=== PATIENT | male | born 1960 | race Caucasian/White ===

== ENCOUNTER 2017-06-23 20:51 | Inpatient (IN) ==
[2017-06-23 21:22] LABS: Basophils # 0.1 10*3/uL (0.0-0.2); Basophils % 0.6 % (0.0-0.8); Eosinophils # 0.5 10*3/uL (0.0-0.87); Eosinophils % 2.9 % (0.00-10.9); Hematocrit 41.8 VOL% (42.0-52.0); Hemoglobin 14.1 GM/DL (14.0-18.0); Immature Granulocytes % 0.5 %; Immature Granulocytes Absolute 0.09 #; Lymphocytes # 4.4 10*3/uL (1.4-4.0); Mean Corpuscular HGB Conc 33.7 GM/DL (32-36); Mean Corpuscular Hemoglobin 29 PG (27-34); Mean Corpuscular Volume 86.7 FL (87-102); Mean Platelet Volume 10.1 FL (9.6-12.0); Monocytes # 1.3 10*3/uL (0.11-0.8); Monocytes % 7.8 % (1.7-12.7); Neutrophils # 10.4 10*3/uL (1.4-7.4); Neutrophils % 62.2 % (38.7-73.9); Platelet Count 313 T/CUMM (130-400); Red Blood Count 4.82 MC/CUMM (3.8-5.5); White Blood Count 16.7 T/CUMM (4-12)
[2017-06-23 21:37] LABS: PT Patient Result 10.9 SECS; Partial Thromboplastin Time 22.7 SECS (0-40)
[2017-06-23] MEDS: SODIUM CHLORIDE 0.9% 1,000 ML IV SCH ×3 (21:43→22:41)
[2017-06-23 21:47] LABS: Alanine Aminotransferase 140 U/L (16-61); Albumin 3.2 G/DL (3.4-5.0); Alkaline Phosphatase 91 U/L (45-117); Amylase 32 U/L (25-115); Aspartate Amino Transferase 150 U/L (0-37); Bilirubin,Total < 0.39 MG/DL (0.2-1.0); Blood Urea Nitrogen 21 MG/DL (7-18); Calcium 8.1 MG/DL (8.5-10.1); Glucose 173 MG/DL (74-106); Osmolality,Calculated 283.5 MOS/KG (273-304); Potassium 4.2 MMOL/L (3.5-5.1); Sodium 139 MMOL/L (136-145); Total Protein 5.6 G/DL (6.4-8.3)
[2017-06-23 21:50] LABS: Lactic Acid 4.6 MMOL/L (0.4-2.0)
[2017-06-23 22:01] LABS: Apearance,Urine CLEAR (Clear); Bilirubin,Urine Negative (Negative); Blood, Urine Moderate mg/dL (Negative); Glucose,Urine (UA) 50 mg/dL (Negative); Ketones,Urine Negative (Negative); Mucus,Urine Occasional /LPF (Occasional); Nitrite,Urine Negative (Negative); Protein,Urine 100 MG/DL; RBC,Urine 17 /HPF (0-4); Urine Color Yellow (Yellow); Urine Specific Gravity 1.038 (1.001-1.035); Urine Urobilinogen < 2.0 EU/DL (0.2-1.0)
[2017-06-23] MEDS ORDERED: MICROFIBRILLAR COLLAGEN POWDER 1 GM CAN TOP ONE ×2 (22:02→22:17)
[2017-06-23 22:08] LABS: Barbiturates Screen,Urine Negative (Negative); Benzodiazepines Screen,Urine Positive (Negative); Cannabinoid Screen,Urine Positive (Negative); Opiate Screen,Urine Negative (Negative); Phencyclidine Screen,Urine Negative (Negative)
[2017-06-23] MEDS ORDERED: ceFAZolin 1,000 MG VIAL ONE (22:12)
[2017-06-23] MEDS ORDERED: ETOMIDATE 20 MG/10 ML VIAL IV ONE (22:17)
[2017-06-23] MEDS ORDERED: PROPOFOL 1,000 MG/100 ML BOTTLE IV ONE (22:25)
[2017-06-23] MEDS: PROPOFOL 1,000 MG/100 ML BOTTLE IV SCH (23:15)
[2017-06-23] MEDS ORDERED: fentaNYL 100 MCG/2 ML VIAL ONE (23:28)
[2017-06-23] MEDS ORDERED: ROCURONIUM 100 MG/10 ML VIAL IV ONE (23:28)
[2017-06-23] MEDS ORDERED: MIDAZOLAM 2 MG/2 ML VIAL ONE (23:28)
[2017-06-23] MEDS ORDERED: SODIUM CHLORIDE 0.9% 4,000 ML IV ONE (23:28)
[2017-06-23] MEDS ORDERED: SEVOFLURANE 1 UNIT/15 MINUTE INH ONE (23:28)
[2017-06-23 23:41] LABS: Hematocrit 26.8 VOL% (42.0-52.0); Hemoglobin 9.1 GM/DL (14.0-18.0)
[2017-06-23 23:46] LABS: ABG Base Excess -6.5 MMOL/L (-2.5-2.5); ABG Oxygen Saturation 99.5 % (95-100); ABG PCO2 37.9 MM HG (35-48); ABG PH 7.311 (7.35-7.45); ABG TCO2 17.9 MMOL/L (23-27)
[2017-06-23] MEDS: DEXTROSE 5% LACTATED RINGERS 1,000 ML IV SCH (23:49)
[2017-06-23] MEDS ORDERED: SODIUM CHLORIDE 0.9% 250 ML IV PRN (23:59)
[2017-06-24] MEDS ORDERED: SODIUM CHLORIDE 0.9% 250 ML IV PRN ×2 (00:02→05:29)
[2017-06-24 00:28] LABS: Hematocrit 33.2 VOL% (42.0-52.0); Hemoglobin 11.4 GM/DL (14.0-18.0)
[2017-06-24 00:38] LABS: INR 1.3; PT Patient Result 13.1 SECS
[2017-06-24 00:55] LABS: Calcium 6.5 MG/DL (8.5-10.1); Magnesium 1.5 MG/DL (1.8-2.4); Osmolality,Calculated 291.8 MOS/KG (273-304); Potassium 3.9 MMOL/L (3.5-5.1)
[2017-06-24] MEDS ORDERED: MAGNESIUM SULF RIDER 1 GM in PREMIX 1 EACH IV ONE (01:01)
[2017-06-24] MEDS ORDERED: CALCIUM GLUCONATE 1,000 MG in SODIUM CHLORIDE 0.9% 100 ML IV ONE (02:00)
[2017-06-24 02:04] LABS: Hematocrit 28.1 VOL% (42.0-52.0); Hemoglobin 9.6 GM/DL (14.0-18.0)
[2017-06-24 04:11] LABS: Basophils % 0.2 % (0.0-0.8); Eosinophils # 0.1 10*3/uL (0.0-0.87); Eosinophils % 0.4 % (0.00-10.9); Hematocrit 27.9 VOL% (42.0-52.0); Hemoglobin 9.6 GM/DL (14.0-18.0); Immature Granulocytes % 0.3 %; Immature Granulocytes Absolute 0.05 #; Lymphocytes # 1.8 10*3/uL (1.4-4.0); Lymphocytes % 11.1 % (21.2-54.2); Mean Corpuscular HGB Conc 34.4 GM/DL (32-36); Mean Corpuscular Hemoglobin 30 PG (27-34); Mean Corpuscular Volume 86.9 FL (87-102); Mean Platelet Volume 10.1 FL (9.6-12.0); Monocytes % 6.3 % (1.7-12.7); Neutrophils # 13.2 10*3/uL (1.4-7.4); Neutrophils % 81.7 % (38.7-73.9); Platelet Count 206 T/CUMM (130-400); Red Blood Count 3.21 MC/CUMM (3.8-5.5); Red Cell Distribution Width 12.5 % (9.3-17.3); White Blood Count 16.2 T/CUMM (4-12)
[2017-06-24 04:18] LABS: ABG Base Excess -3.3 MMOL/L (-2.5-2.5); ABG HCO3 21.7 MMOL/L (20-26); ABG Oxygen Saturation 99.3 % (95-100); ABG PCO2 33.9 MM HG (35-48); ABG PH 7.399 (7.35-7.45); ABG TCO2 19.1 MMOL/L (23-27)
[2017-06-24 04:38] LABS: Albumin 2.5 G/DL (3.4-5.0); Bilirubin,Total 0.6 MG/DL (0.2-1.0); Calcium 7.3 MG/DL (8.5-10.1); Potassium 3.9 MMOL/L (3.5-5.1); Total Protein 4.3 G/DL (6.4-8.3)
[2017-06-24 04:42] LABS: Band Neutrophils 18 % (0-10); Eosinophils 1 % (0-10); Lymphocytes 12 % (20-55); Segmented Neutrophils 66 % (50-85); Total Cells Counted 100
[2017-06-24 04:43] LABS: Platelet Estimate Normal
[2017-06-24] MEDS: HYDROmorphone 2 MG/1 ML VIAL IV PRN ×4 (05:18→23:30)
[2017-06-24] MEDS: PROPOFOL 1,000 MG/100 ML BOTTLE IV SCH ×2 (07:56→21:29)
[2017-06-24] MEDS: DEXTROSE 5% LACTATED RINGERS 1,000 ML IV SCH ×2 (07:56→16:12)
[2017-06-24 08:43] LABS: Hematocrit 34.4 VOL% (42.0-52.0); Hemoglobin 11.7 GM/DL (14.0-18.0)
[2017-06-24] MEDS ORDERED: DEXTROSE 50% 25 GM/50 ML VIAL IV PRN (09:40)
[2017-06-24] MEDS ORDERED: GLUCAGON 1 MG VIAL IM PRN (09:40)
[2017-06-24] MEDS: PANTOPRAZOLE 40 MG VIAL IV SCH (09:51)
[2017-06-24] MEDS: INSULIN REGULAR 100 UNIT/ML SUBCUT SCH ×2 (12:15→18:32)
[2017-06-24 15:36] LABS: Hematocrit 32.4 VOL% (42.0-52.0); Hemoglobin 11.3 GM/DL (14.0-18.0)
[2017-06-25] MEDS: BACITRACIN OINT 0.9 GM PACK TOP SCH ×2 (01:05→09:27)
[2017-06-25] MEDS: DEXTROSE 5% LACTATED RINGERS 1,000 ML IV SCH ×3 (01:06→16:27)
[2017-06-25] MEDS: INSULIN REGULAR 100 UNIT/ML SUBCUT SCH ×4 (01:07→18:23)
[2017-06-25] MEDS: PROPOFOL 1,000 MG/100 ML BOTTLE IV SCH ×3 (01:07→17:01)
[2017-06-25 04:07] LABS: ABG Base Excess -2.3 MMOL/L (-2.5-2.5); ABG HCO3 21.8 MMOL/L (20-26); ABG Oxygen Saturation 95.7 % (95-100); ABG PCO2 34.9 MM HG (35-48); ABG PH 7.413 (7.35-7.45); ABG TCO2 22.8 MMOL/L (23-27); Pt O2 Delivery Device Ventilator
[2017-06-25 04:16] LABS: Basophils % 0.3 % (0.0-0.8); Eosinophils % 0.1 % (0.00-10.9); Hemoglobin 11.3 GM/DL (14.0-18.0); Immature Granulocytes % 0.4 %; Immature Granulocytes Absolute 0.06 #; Lymphocytes % 6.8 % (21.2-54.2); Mean Corpuscular HGB Conc 34.2 GM/DL (32-36); Mean Corpuscular Hemoglobin 30 PG (27-34); Mean Corpuscular Volume 86.4 FL (87-102); Mean Platelet Volume 9.8 FL (9.6-12.0); Monocytes # 1.4 10*3/uL (0.11-0.8); Monocytes % 9.4 % (1.7-12.7); Neutrophils # 12.7 10*3/uL (1.4-7.4); Platelet Count 145 T/CUMM (130-400); Red Blood Count 3.82 MC/CUMM (3.8-5.5); Red Cell Distribution Width 13.7 % (9.3-17.3); White Blood Count 15.3 T/CUMM (4-12)
[2017-06-25 04:48] LABS: Platelet Estimate Adequate
[2017-06-25 04:52] LABS: Phosphorous 2.7 MG/DL (2.5-4.9); Prealbumin 11.6 MG/DL (20-40)
[2017-06-25 04:56] LABS: Calcium 7.5 MG/DL (8.5-10.1); Magnesium 1.9 MG/DL (1.8-2.4); Osmolality,Calculated 289.8 MOS/KG (273-304); Potassium 4.3 MMOL/L (3.5-5.1)
[2017-06-25] MEDS ORDERED: MICROFIBRILLAR COLLAGEN POWDER 1 GM CAN TOP ONE ×2 (06:30→06:31)
[2017-06-25] MEDS ORDERED: SODIUM CHLORIDE 0.9% 1,000 ML IV ONE (08:59)
[2017-06-25] MEDS ORDERED: PHENYLEPHRINE 50 MG/5 ML VIAL ONE (08:59)
[2017-06-25] MEDS ORDERED: LACTATED RINGERS 1,000 ML IV ONE (08:59)
[2017-06-25] MEDS ORDERED: MIDAZOLAM 2 MG/2 ML VIAL ONE (08:59)
[2017-06-25] MEDS ORDERED: SEVOFLURANE 1 UNIT/15 MINUTE INH ONE (08:59)
[2017-06-25] MEDS ORDERED: VECURONIUM 10 MG VIAL IV ONE (08:59)
[2017-06-25] MEDS: PANTOPRAZOLE 40 MG VIAL IV SCH (09:27)
[2017-06-25] MEDS: HYDROmorphone 2 MG/1 ML VIAL IV PRN ×4 (10:38→21:29)
[2017-06-26] MEDS: INSULIN REGULAR 100 UNIT/ML SUBCUT SCH ×4 (01:10→18:07)
[2017-06-26] MEDS: PROPOFOL 1,000 MG/100 ML BOTTLE IV SCH ×4 (01:11→22:04)
[2017-06-26] MEDS: DEXTROSE 5% LACTATED RINGERS 1,000 ML IV SCH ×3 (01:12→15:31)
[2017-06-26 04:18] LABS: ABG Base Excess -0.1 MMOL/L (-2.5-2.5); ABG HCO3 24.3 MMOL/L (20-26); ABG Oxygen Saturation 97.6 % (95-100); ABG PCO2 43.6 MM HG (35-48); ABG PH 7.371 (7.35-7.45); ABG PO2 93.7 MM HG (80-95); ABG TCO2 22.7 MMOL/L (23-27); Allen Test Positive; Pt O2 Delivery Device Ventilator
[2017-06-26] MEDS: HYDROmorphone 2 MG/1 ML VIAL IV PRN ×6 (04:40→22:04)
[2017-06-26 07:00] LABS: Basophils % 0.3 % (0.0-0.8); Eosinophils # 0.4 10*3/uL (0.0-0.87); Eosinophils % 3.5 % (0.00-10.9); Hematocrit 27.5 VOL% (42.0-52.0); Hemoglobin 9.3 GM/DL (14.0-18.0); Immature Granulocytes % 0.7 %; Immature Granulocytes Absolute 0.07 #; Lymphocytes # 1.1 10*3/uL (1.4-4.0); Lymphocytes % 10.6 % (21.2-54.2); Mean Corpuscular HGB Conc 33.8 GM/DL (32-36); Mean Corpuscular Hemoglobin 30 PG (27-34); Mean Corpuscular Volume 87.6 FL (87-102); Mean Platelet Volume 10.2 FL (9.6-12.0); Monocytes # 0.7 10*3/uL (0.11-0.8); Monocytes % 6.3 % (1.7-12.7); Neutrophils # 8.5 10*3/uL (1.4-7.4); Neutrophils % 78.6 % (38.7-73.9); Platelet Count 142 T/CUMM (130-400); Red Blood Count 3.14 MC/CUMM (3.8-5.5); Red Cell Distribution Width 13.8 % (9.3-17.3); White Blood Count 10.8 T/CUMM (4-12)
[2017-06-26 07:37] LABS: Calcium 7.3 MG/DL (8.5-10.1); Osmolality,Calculated 291.8 MOS/KG (273-304); Potassium 4.2 MMOL/L (3.5-5.1)
[2017-06-26 08:06] LABS: Band Neutrophils 12 % (0-10); Burr Cells Slight; Lymphocytes 10 % (20-55); Platelet Estimate Adequate; Segmented Neutrophils 75 % (50-85); Total Cells Counted 100
[2017-06-26] MEDS: PANTOPRAZOLE 40 MG VIAL IV SCH (08:33)
[2017-06-26] MEDS: BACITRACIN OINT 0.9 GM PACK TOP SCH (08:33)
[2017-06-27] MEDS: DEXTROSE 5% LACTATED RINGERS 1,000 ML IV SCH ×3 (00:08→16:31)
[2017-06-27] MEDS: INSULIN REGULAR 100 UNIT/ML SUBCUT SCH ×4 (00:29→17:58)
[2017-06-27 03:03] LABS: ABG Base Excess 1.8 MMOL/L (-2.5-2.5); ABG HCO3 27.1 MMOL/L (20-26); ABG Oxygen Saturation 94.3 % (95-100); ABG PCO2 45.8 MM HG (35-48); ABG PO2 68.7 MM HG (80-95); ABG TCO2 28.5 MMOL/L (23-27); Allen Test Positive; Pt O2 Delivery Device Ventilator
[2017-06-27 04:23] LABS: Basophils # 0.1 10*3/uL (0.0-0.2); Basophils % 0.5 % (0.0-0.8); Eosinophils # 0.2 10*3/uL (0.0-0.87); Eosinophils % 1.6 % (0.00-10.9); Hematocrit 27.6 VOL% (42.0-52.0); Immature Granulocytes % 0.4 %; Immature Granulocytes Absolute 0.04 #; Lymphocytes % 9.6 % (21.2-54.2); Mean Corpuscular HGB Conc 32.6 GM/DL (32-36); Mean Corpuscular Hemoglobin 29 PG (27-34); Mean Corpuscular Volume 88.5 FL (87-102); Monocytes # 0.9 10*3/uL (0.11-0.8); Neutrophils # 8.1 10*3/uL (1.4-7.4); Neutrophils % 78.9 % (38.7-73.9); Platelet Count 142 T/CUMM (130-400); Red Blood Count 3.12 MC/CUMM (3.8-5.5); White Blood Count 10.3 T/CUMM (4-12)
[2017-06-27] MEDS: PROPOFOL 1,000 MG/100 ML BOTTLE IV SCH ×2 (04:33→19:45)
[2017-06-27] MEDS: HYDROmorphone 2 MG/1 ML VIAL IV PRN ×6 (04:35→23:41)
[2017-06-27 04:56] LABS: Calcium 7.3 MG/DL (8.5-10.1); Osmolality,Calculated 291.7 MOS/KG (273-304); Potassium 4.3 MMOL/L (3.5-5.1)
[2017-06-27 06:21] LABS: Band Neutrophils 23 % (0-10); Eosinophils 1 % (0-10); Lymphocytes 7 % (20-55); Segmented Neutrophils 61 % (50-85); Total Cells Counted 100
[2017-06-27 06:22] LABS: Dohle Bodies 2+
[2017-06-27 06:23] LABS: Hypochromasia 1+; Platelet Estimate Adequate; Target Cells Slight
[2017-06-27] MEDS ORDERED: LIDOCAINE 2% 20 ML VIAL RESP TX ONE (06:52)
[2017-06-27] MEDS ORDERED: LIDOCAINE 1% 20 ML VIAL MISC INJ ONE (06:52)
[2017-06-27] MEDS: MEROPENEM 1,000 MG in SODIUM CHLORIDE 0.9% 50 ML IV SCH ×4 (09:01→23:36)
[2017-06-27] MEDS: CLINDAMYCIN INJ 600 MG in PREMIX 1 EACH IV SCH ×3 (09:03→23:42)
[2017-06-27] MEDS: methylPREDNISolone SOD SUC 40 MG/1 ML VIAL IV SCH ×2 (09:03→21:02)
[2017-06-27] MEDS: PANTOPRAZOLE 40 MG VIAL IV SCH (09:05)
[2017-06-27] MEDS: BACITRACIN OINT 0.9 GM PACK TOP SCH (09:08)
[2017-06-27] MEDS: ALBUTEROL/IPRATROPIUM 3 ML NEB RESP TX SCH ×2 (13:18→21:12)
[2017-06-28] MEDS: DEXTROSE 5% LACTATED RINGERS 1,000 ML IV SCH ×4 (00:30→21:12)
[2017-06-28] MEDS: ALBUTEROL/IPRATROPIUM 3 ML NEB RESP TX SCH ×4 (01:44→19:25)
[2017-06-28] MEDS: PROPOFOL 1,000 MG/100 ML BOTTLE IV SCH ×3 (02:25→23:43)
[2017-06-28] MEDS: INSULIN REGULAR 100 UNIT/ML SUBCUT SCH ×4 (03:41→18:35)
[2017-06-28 03:50] LABS: ABG Base Excess 1.6 MMOL/L (-2.5-2.5); ABG HCO3 25.9 MMOL/L (20-26); ABG Oxygen Saturation 95.9 % (95-100); ABG PH 7.357 (7.35-7.45); ABG PO2 79.8 MM HG (80-95); ABG TCO2 25.9 MMOL/L (23-27)
[2017-06-28 05:04] LABS: Calcium 7.4 MG/DL (8.5-10.1); Osmolality,Calculated 295.7 MOS/KG (273-304); Potassium 5.1 MMOL/L (3.5-5.1)
[2017-06-28] MEDS: MEROPENEM 1,000 MG in SODIUM CHLORIDE 0.9% 50 ML IV SCH ×3 (06:03→23:15)
[2017-06-28 06:26] LABS: Basophils % 0.2 % (0.0-0.8); Hematocrit 24.9 VOL% (42.0-52.0); Hemoglobin 8.1 GM/DL (14.0-18.0); Immature Granulocytes % 2.1 %; Immature Granulocytes Absolute 0.18 #; Lymphocytes # 0.9 10*3/uL (1.4-4.0); Lymphocytes % 10.4 % (21.2-54.2); Mean Corpuscular HGB Conc 32.5 GM/DL (32-36); Mean Corpuscular Hemoglobin 29 PG (27-34); Mean Corpuscular Volume 88.9 FL (87-102); Mean Platelet Volume 10.6 FL (9.6-12.0); Monocytes # 0.7 10*3/uL (0.11-0.8); Monocytes % 8.2 % (1.7-12.7); Neutrophils # 6.8 10*3/uL (1.4-7.4); Neutrophils % 79.1 % (38.7-73.9); Platelet Count 157 T/CUMM (130-400); Red Cell Distribution Width 13.6 % (9.3-17.3); White Blood Count 8.7 T/CUMM (4-12)
[2017-06-28 06:59] LABS: Band Neutrophils 2 % (0-10); Lymphocytes 9 % (20-55); Segmented Neutrophils 76 % (50-85); Total Cells Counted 100
[2017-06-28 07:00] LABS: Giant Platelets Few; Hypochromasia 1+; Ovalocytes Slight; Platelet Estimate Normal
[2017-06-28] MEDS: HYDROmorphone 2 MG/1 ML VIAL IV PRN ×5 (08:21→21:12)
[2017-06-28] MEDS: CLINDAMYCIN INJ 600 MG in PREMIX 1 EACH IV SCH ×3 (08:28→23:16)
[2017-06-28] MEDS: methylPREDNISolone SOD SUC 40 MG/1 ML VIAL IV SCH ×2 (08:29→21:11)
[2017-06-28] MEDS: BACITRACIN OINT 0.9 GM PACK TOP SCH (09:58)
[2017-06-28] MEDS: PANTOPRAZOLE 40 MG VIAL IV SCH (09:58)
[2017-06-29] MEDS: ALBUTEROL/IPRATROPIUM 3 ML NEB RESP TX SCH ×5 (00:33→23:38)
[2017-06-29 03:21] LABS: ABG Base Excess 3.4 MMOL/L (-2.5-2.5); ABG HCO3 27.4 MMOL/L (20-26); ABG Oxygen Saturation 97.2 % (95-100); ABG PCO2 41.8 MM HG (35-48); ABG PH 7.433 (7.35-7.45); ABG PO2 88.9 MM HG (80-95)
[2017-06-29] MEDS: DEXTROSE 5% LACTATED RINGERS 1,000 ML IV SCH ×3 (05:00→07:34)
[2017-06-29] MEDS: INSULIN REGULAR 100 UNIT/ML SUBCUT SCH ×4 (05:01→18:29)
[2017-06-29 05:28] LABS: Basophils % 0.3 % (0.0-0.8); Eosinophils % 0.1 % (0.00-10.9); Hematocrit 24.7 VOL% (42.0-52.0); Hemoglobin 8.1 GM/DL (14.0-18.0); Immature Granulocytes % 9.7 %; Immature Granulocytes Absolute 1.12 #; Lymphocytes # 1.2 10*3/uL (1.4-4.0); Lymphocytes % 10.7 % (21.2-54.2); Mean Corpuscular HGB Conc 32.8 GM/DL (32-36); Mean Corpuscular Hemoglobin 29 PG (27-34); Mean Corpuscular Volume 87.9 FL (87-102); Mean Platelet Volume 10.6 FL (9.6-12.0); Monocytes # 1.3 10*3/uL (0.11-0.8); Monocytes % 11.2 % (1.7-12.7); NRBC # 0.06 10*3/uL; Neutrophils # 7.8 10*3/uL (1.4-7.4); Platelet Count 186 T/CUMM (130-400); Red Blood Count 2.81 MC/CUMM (3.8-5.5); Red Cell Distribution Width 13.4 % (9.3-17.3); White Blood Count 11.5 T/CUMM (4-12)
[2017-06-29 06:00] LABS: Calcium 7.8 MG/DL (8.5-10.1); Osmolality,Calculated 303.3 MOS/KG (273-304); Potassium 4.3 MMOL/L (3.5-5.1)
[2017-06-29] MEDS: PROPOFOL 1,000 MG/100 ML BOTTLE IV SCH (06:00)
[2017-06-29 06:10] LABS: Band Neutrophils 2 % (0-10); Lymphocytes 10 % (20-55); Metamyelocytes 4 %; Nucleated Red Blood Cells 2 (0-5); Platelet Estimate Normal; Segmented Neutrophils 75 % (50-85); Total Cells Counted 100
[2017-06-29] MEDS: MEROPENEM 1,000 MG in SODIUM CHLORIDE 0.9% 50 ML IV SCH ×3 (06:41→22:16)
[2017-06-29] MEDS: HYDROmorphone 2 MG/1 ML VIAL IV PRN ×6 (07:56→23:03)
[2017-06-29] MEDS: BACITRACIN OINT 0.9 GM PACK TOP SCH (08:00)
[2017-06-29] MEDS: PANTOPRAZOLE 40 MG VIAL IV SCH (08:00)
[2017-06-29] MEDS: methylPREDNISolone SOD SUC 40 MG/1 ML VIAL IV SCH (08:03)
[2017-06-29] MEDS: CLINDAMYCIN INJ 600 MG in PREMIX 1 EACH IV SCH ×3 (09:04→23:03)
[2017-06-29] MEDS: LISINOPRIL 20 MG TABLET PO SCH (13:39)
[2017-06-29 21:05] LABS: ABG Base Excess 4.6 MMOL/L (-2.5-2.5); ABG HCO3 28.6 MMOL/L (20-26); ABG Oxygen Saturation 99.5 % (95-100); ABG PCO2 37.9 MM HG (35-48); ABG PH 7.481 (7.35-7.45); ABG TCO2 25.7 MMOL/L (23-27); Allen Test Positive; Pt O2 Delivery Device BIPAP
[2017-06-30] MEDS: HYDROmorphone 2 MG/1 ML VIAL IV PRN ×5 (03:10→14:13)
[2017-06-30 03:29] LABS: ABG Oxygen Saturation 98.1 % (95-100); ABG PCO2 39.4 MM HG (35-48); ABG TCO2 25.4 MMOL/L (23-27)
[2017-06-30] MEDS: MEROPENEM 1,000 MG in SODIUM CHLORIDE 0.9% 50 ML IV SCH ×3 (06:06→23:16)
[2017-06-30] MEDS: CLINDAMYCIN INJ 600 MG in PREMIX 1 EACH IV SCH (06:52)
[2017-06-30 06:57] LABS: Basophils # 0.1 10*3/uL (0.0-0.2); Basophils % 0.6 % (0.0-0.8); Eosinophils # 0.1 10*3/uL (0.0-0.87); Eosinophils % 0.6 % (0.00-10.9); Hemoglobin 10.4 GM/DL (14.0-18.0); Immature Granulocytes % 11.8 %; Lymphocytes # 1.9 10*3/uL (1.4-4.0); Lymphocytes % 11.4 % (21.2-54.2); Mean Corpuscular HGB Conc 32.5 GM/DL (32-36); Mean Corpuscular Hemoglobin 29 PG (27-34); Mean Corpuscular Volume 89.9 FL (87-102); Monocytes # 1.6 10*3/uL (0.11-0.8); Monocytes % 9.7 % (1.7-12.7); NRBC # 0.21 10*3/uL; Neutrophils # 11.2 10*3/uL (1.4-7.4); Neutrophils % 65.9 % (38.7-73.9); Platelet Count 262 T/CUMM (130-400); Red Blood Count 3.56 MC/CUMM (3.8-5.5); Red Cell Distribution Width 13.5 % (9.3-17.3)
[2017-06-30] MEDS: ALBUTEROL/IPRATROPIUM 3 ML NEB RESP TX SCH ×3 (07:05→19:25)
[2017-06-30 07:10] LABS: Calcium 8.1 MG/DL (8.5-10.1); Osmolality,Calculated 296.4 MOS/KG (273-304); Potassium 4.1 MMOL/L (3.5-5.1)
[2017-06-30 07:59] LABS: Magnesium 2.1 MG/DL (1.8-2.4); Phosphorous 2.9 MG/DL (2.5-4.9); Prealbumin 11.7 MG/DL (20-40)
[2017-06-30] MEDS: LISINOPRIL 20 MG TABLET PO SCH (08:43)
[2017-06-30 09:21] LABS: Hypochromasia 2+; Lymphocytes 14 % (20-55); Microcytosis 2+; Myelocytes 1 %; Platelet Estimate Adequate; Segmented Neutrophils 72 % (50-85); Total Cells Counted 100
[2017-06-30] MEDS: BACITRACIN OINT 0.9 GM PACK TOP SCH (12:09)
[2017-06-30] MEDS ORDERED: NALOXONE 0.4 MG/ML VIAL IV PRN (15:47)
[2017-06-30] MEDS: HYDROmorphone PCA 30 MG/30 ML SYRINGE IV SCH (16:25)
[2017-07-01] MEDS: ALBUTEROL/IPRATROPIUM 3 ML NEB RESP TX SCH ×4 (01:29→19:02)
[2017-07-01] MEDS: MEROPENEM 1,000 MG in SODIUM CHLORIDE 0.9% 50 ML IV SCH (06:05)
[2017-07-01] MEDS: LISINOPRIL 20 MG TABLET PO SCH (09:42)
[2017-07-01] MEDS: HYDROmorphone PCA 30 MG/30 ML SYRINGE IV SCH (16:19)
[2017-07-01] MEDS: BACITRACIN OINT 0.9 GM PACK TOP SCH (16:19)
[2017-07-02] MEDS: ALBUTEROL/IPRATROPIUM 3 ML NEB RESP TX SCH ×4 (01:22→19:31)
[2017-07-02] MEDS: LISINOPRIL 20 MG TABLET PO SCH (09:59)
[2017-07-02] MEDS: BACITRACIN OINT 0.9 GM PACK TOP SCH (10:00)
[2017-07-02] MEDS: ATORVASTATIN 20 MG TABLET PO SCH (21:48)
[2017-07-03] MEDS: ALBUTEROL/IPRATROPIUM 3 ML NEB RESP TX SCH ×4 (01:53→19:40)
[2017-07-03] MEDS: HYDROmorphone PCA 30 MG/30 ML SYRINGE IV SCH ×2 (06:00→18:12)
[2017-07-03 08:18] LABS: Basophils % 0.2 % (0.0-0.8); Eosinophils # 0.8 10*3/uL (0.0-0.87); Eosinophils % 4.3 % (0.00-10.9); Hematocrit 28.7 VOL% (42.0-52.0); Hemoglobin 9.5 GM/DL (14.0-18.0); Immature Granulocytes % 4.9 %; Immature Granulocytes Absolute 0.93 #; Lymphocytes # 1.8 10*3/uL (1.4-4.0); Lymphocytes % 9.2 % (21.2-54.2); Mean Corpuscular HGB Conc 33.1 GM/DL (32-36); Mean Corpuscular Hemoglobin 29 PG (27-34); Mean Corpuscular Volume 86.2 FL (87-102); Mean Platelet Volume 10.5 FL (9.6-12.0); Monocytes # 1.3 10*3/uL (0.11-0.8); Monocytes % 6.6 % (1.7-12.7); Neutrophils # 14.3 10*3/uL (1.4-7.4); Neutrophils % 74.8 % (38.7-73.9); Platelet Count 336 T/CUMM (130-400); Red Blood Count 3.33 MC/CUMM (3.8-5.5); Red Cell Distribution Width 13.1 % (9.3-17.3); White Blood Count 19.1 T/CUMM (4-12)
[2017-07-03 08:47] LABS: Calcium 7.6 MG/DL (8.5-10.1); Magnesium 1.9 MG/DL (1.8-2.4); Osmolality,Calculated 273.8 MOS/KG (273-304); Potassium 4.4 MMOL/L (3.5-5.1)
[2017-07-03 08:59] LABS: Burr Cells Slight; Eosinophils 5 % (0-10); Hypochromasia 1+; Lymphocytes 6 % (20-55); Nucleated Red Blood Cells 1 (0-5); Ovalocytes Slight; Platelet Estimate Adequate; Segmented Neutrophils 87 % (50-85); Total Cells Counted 100
[2017-07-03] MEDS: LISINOPRIL 20 MG TABLET PO SCH (09:28)
[2017-07-03] MEDS: CEFUROXIME 500 MG TABLET PO SCH ×2 (11:14→21:22)
[2017-07-03] MEDS: BACITRACIN OINT 0.9 GM PACK TOP SCH (18:14)
[2017-07-03] MEDS: ATORVASTATIN 20 MG TABLET PO SCH (21:22)
[2017-07-04] MEDS: ALBUTEROL/IPRATROPIUM 3 ML NEB RESP TX SCH ×2 (00:37→07:02)
[2017-07-04] MEDS: CEFUROXIME 500 MG TABLET PO SCH (09:49)
[2017-07-04] MEDS: LISINOPRIL 20 MG TABLET PO SCH (09:49)
[2017-07-04 10:45] VITALS: BP 113/56
[2017-07-04] MEDS: BACITRACIN OINT 0.9 GM PACK TOP SCH (11:06)
== END 2017-07-04 12:10 | disposition home or self-care (01) | DRG 957 ==
LOC: N.ED 20:51 → EDBD 20:51 → N.ICU 21:44 → N.EDINP 23:12 → N.ICU 23:17 → UNDODISIN 06-26 11:01 → N.3E 07-02 18:20
PROVIDERS: ADMIT Surgery; ATTEND Surgery

== ENCOUNTER 2017-07-04 19:02 | Inpatient (IN) ==
[2017-07-04 22:40] LABS: Basophils # 0.1 10*3/uL (0.0-0.2); Basophils % 0.3 % (0.0-0.8); Eosinophils # 0.8 10*3/uL (0.0-0.87); Eosinophils % 3.1 % (0.00-10.9); Hemoglobin 10.1 GM/DL (14.0-18.0); Immature Granulocytes % 4.4 %; Immature Granulocytes Absolute 1.13 #; Lymphocytes # 2.2 10*3/uL (1.4-4.0); Lymphocytes % 8.5 % (21.2-54.2); Mean Corpuscular HGB Conc 33.7 GM/DL (32-36); Mean Corpuscular Hemoglobin 29 PG (27-34); Mean Corpuscular Volume 85.2 FL (87-102); Mean Platelet Volume 9.9 FL (9.6-12.0); Monocytes # 1.8 10*3/uL (0.11-0.8); Neutrophils # 19.6 10*3/uL (1.4-7.4); Neutrophils % 76.7 % (38.7-73.9); Platelet Count 411 T/CUMM (130-400); Red Blood Count 3.52 MC/CUMM (3.8-5.5); Red Cell Distribution Width 13.1 % (9.3-17.3); White Blood Count 25.5 T/CUMM (4-12)
[2017-07-04 23:02] LABS: Albumin 1.9 G/DL (3.4-5.0); Calcium 7.4 MG/DL (8.5-10.1); Potassium 3.5 MMOL/L (3.5-5.1); Total Protein 5.2 G/DL (6.4-8.3)
[2017-07-05 00:56] LABS: Band Neutrophils 5 % (0-10); Eosinophils 4 % (0-10); Lymphocytes 13 % (20-55); Metamyelocytes 2 %; Myelocytes 1 %; Promyelocytes 1 %; Segmented Neutrophils 70 % (50-85)
[2017-07-05 00:57] LABS: Total Cells Counted 100
[2017-07-05] MEDS ORDERED: ENOXAPARIN 80 MG/0.8 ML SYRINGE SUBCUT ONE ×2 (02:52→03:03)
[2017-07-05] MEDS ORDERED: ACETAMINOPHEN 325 MG TABLET PO PRN (03:31)
[2017-07-05] MEDS ORDERED: ONDANSETRON 4 MG/2 ML VIAL IV PRN (03:31)
[2017-07-05] MEDS: KETOROLAC 30 MG/1 ML VIAL IV SCH ×4 (04:11→20:41)
[2017-07-05] MEDS: LACTATED RINGERS 1,000 ML IV SCH ×2 (04:11→15:38)
[2017-07-05] MEDS: VANCOMYCIN INJ 1,250 MG in SODIUM CHLORIDE 0.45% 250 ML IV SCH ×2 (04:36→19:25)
[2017-07-05] MEDS: PIPERACILLIN/TAZOBACTAM 3,375 MG in SODIUM CHLORIDE 0.9% 100 ML IV SCH ×3 (05:50→20:20)
[2017-07-05 07:30] LABS: Basophils # 0.1 10*3/uL (0.0-0.2); Basophils % 0.3 % (0.0-0.8); Eosinophils # 0.9 10*3/uL (0.0-0.87); Hematocrit 28.2 VOL% (42.0-52.0); Hemoglobin 9.5 GM/DL (14.0-18.0); Immature Granulocytes % 4.1 %; Immature Granulocytes Absolute 0.89 #; Lymphocytes # 2.2 10*3/uL (1.4-4.0); Lymphocytes % 10.1 % (21.2-54.2); Mean Corpuscular HGB Conc 33.7 GM/DL (32-36); Mean Corpuscular Hemoglobin 29 PG (27-34); Mean Corpuscular Volume 85.5 FL (87-102); Monocytes # 1.7 10*3/uL (0.11-0.8); Monocytes % 7.9 % (1.7-12.7); Neutrophils % 73.6 % (38.7-73.9); Platelet Count 375 T/CUMM (130-400); White Blood Count 21.8 T/CUMM (4-12)
[2017-07-05 08:11] LABS: Albumin 1.8 G/DL (3.4-5.0); Bilirubin,Total 0.9 MG/DL (0.2-1.0); Calcium 7.5 MG/DL (8.5-10.1); Osmolality,Calculated 275.5 MOS/KG (273-304); Potassium 3.7 MMOL/L (3.5-5.1); Total Protein 4.9 G/DL (6.4-8.3)
[2017-07-05 09:12] LABS: Eosinophils 3 % (0-10); Lymphocytes 7 % (20-55); Macrocytosis 1+; Segmented Neutrophils 86 % (50-85); Total Cells Counted 100
[2017-07-05 09:13] LABS: Hypochromasia 2+; Platelet Estimate Adequate; Polychromasia Slight
[2017-07-05] MEDS: ATORVASTATIN 20 MG TABLET PO SCH (09:59)
[2017-07-05] MEDS: PANTOPRAZOLE 40 MG TABLET PO SCH (09:59)
[2017-07-05] MEDS: LISINOPRIL 20 MG TABLET PO SCH (09:59)
[2017-07-05] MEDS ORDERED: FUROSEMIDE 40 MG/4 ML VIAL IV ONE (14:25)
[2017-07-05] MEDS ORDERED: ENOXAPARIN 80 MG/0.8 ML SYRINGE SUBCUT SCH (15:00)
[2017-07-05] MEDS: ENOXAPARIN 80 MG/0.8 ML SYRINGE SUBCUT SCH (15:59)
[2017-07-05] MEDS ORDERED: ENOXAPARIN 40 MG/0.4 ML SYRINGE SUBCUT SCH (18:20)
[2017-07-05] MEDS: HYDROmorphone 2 MG/1 ML VIAL IV PRN (23:59)
[2017-07-06] MEDS: KETOROLAC 30 MG/1 ML VIAL IV SCH ×4 (04:53→21:46)
[2017-07-06] MEDS: VANCOMYCIN INJ 1,250 MG in SODIUM CHLORIDE 0.45% 250 ML IV SCH ×2 (04:53→21:46)
[2017-07-06] MEDS: ENOXAPARIN 80 MG/0.8 ML SYRINGE SUBCUT SCH ×2 (04:53→17:22)
[2017-07-06] MEDS: PIPERACILLIN/TAZOBACTAM 3,375 MG in SODIUM CHLORIDE 0.9% 100 ML IV SCH ×4 (04:54→23:31)
[2017-07-06] MEDS: LISINOPRIL 20 MG TABLET PO SCH (08:49)
[2017-07-06] MEDS: PANTOPRAZOLE 40 MG TABLET PO SCH (08:49)
[2017-07-06] MEDS: ATORVASTATIN 20 MG TABLET PO SCH (08:49)
[2017-07-06] MEDS: HYDROmorphone 2 MG/1 ML VIAL IV PRN (22:37)
[2017-07-07] MEDS: ENOXAPARIN 80 MG/0.8 ML SYRINGE SUBCUT SCH (03:38)
[2017-07-07] MEDS: KETOROLAC 30 MG/1 ML VIAL IV SCH ×4 (03:38→20:40)
[2017-07-07 05:33] LABS: Basophils # 0.1 10*3/uL (0.0-0.2); Basophils % 0.6 % (0.0-0.8); Eosinophils # 0.8 10*3/uL (0.0-0.87); Eosinophils % 5.1 % (0.00-10.9); Hematocrit 27.9 VOL% (42.0-52.0); Hemoglobin 9.2 GM/DL (14.0-18.0); Immature Granulocytes % 4.2 %; Immature Granulocytes Absolute 0.66 #; Lymphocytes # 2.2 10*3/uL (1.4-4.0); Mean Corpuscular Hemoglobin 29 PG (27-34); Mean Corpuscular Volume 86.4 FL (87-102); Mean Platelet Volume 9.6 FL (9.6-12.0); Monocytes # 1.4 10*3/uL (0.11-0.8); Monocytes % 8.9 % (1.7-12.7); Neutrophils # 10.5 10*3/uL (1.4-7.4); Neutrophils % 67.2 % (38.7-73.9); Platelet Count 515 T/CUMM (130-400); Red Blood Count 3.23 MC/CUMM (3.8-5.5); Red Cell Distribution Width 13.2 % (9.3-17.3); White Blood Count 15.5 T/CUMM (4-12)
[2017-07-07 05:55] LABS: Band Neutrophils 2 % (0-10); Eosinophils 9 % (0-10); Giant Platelets Few; Hypochromasia 1+; Lymphocytes 7 % (20-55); Ovalocytes Slight; Platelet Estimate Increased; Segmented Neutrophils 75 % (50-85); Total Cells Counted 100
[2017-07-07 05:56] LABS: Macrocytosis Slight
[2017-07-07] MEDS ORDERED: VANCOMYCIN INJ 1,250 MG in SODIUM CHLORIDE 0.45% 250 ML IV SCH (06:00)
[2017-07-07 06:04] LABS: Calcium 7.9 MG/DL (8.5-10.1); Osmolality,Calculated 275.5 MOS/KG (273-304); Potassium 4.8 MMOL/L (3.5-5.1)
[2017-07-07] MEDS ORDERED: FUROSEMIDE 20 MG TABLET PO ONE (08:08)
[2017-07-07] MEDS: PIPERACILLIN/TAZOBACTAM 3,375 MG in SODIUM CHLORIDE 0.9% 100 ML IV SCH ×3 (08:10→23:02)
[2017-07-07] MEDS: PANTOPRAZOLE 40 MG TABLET PO SCH (08:48)
[2017-07-07] MEDS: LISINOPRIL 20 MG TABLET PO SCH (08:48)
[2017-07-07] MEDS: ATORVASTATIN 20 MG TABLET PO SCH (08:48)
[2017-07-07 13:35] LABS: Apearance,Urine CLEAR (Clear); Bilirubin,Urine Negative (Negative); Blood, Urine Negative (Negative); Glucose,Urine (UA) Negative (Negative); Ketones,Urine Negative (Negative); Mucus,Urine Occasional /LPF (Occasional); Nitrite,Urine Negative (Negative); Protein,Urine Negative; RBC,Urine <1 /HPF (0-4); Squamous Epithelial Cell,Urine Occasional /HPF (0-10); Urine Color Yellow (Yellow); Urine Urobilinogen < 2.0 EU/DL (0.2-1.0); WBC,Urine <1 /HPF (0-6)
[2017-07-07] MEDS: HYDROmorphone 2 MG/1 ML VIAL IV PRN ×2 (18:53→23:49)
[2017-07-07] MEDS: APIXABAN 5 MG TABLET PO SCH (20:40)
[2017-07-08] MEDS: KETOROLAC 30 MG/1 ML VIAL IV SCH ×4 (03:08→21:08)
[2017-07-08 05:49] LABS: Basophils # 0.1 10*3/uL (0.0-0.2); Basophils % 0.6 % (0.0-0.8); Eosinophils # 0.7 10*3/uL (0.0-0.87); Eosinophils % 4.7 % (0.00-10.9); Hematocrit 27.8 VOL% (42.0-52.0); Hemoglobin 9.2 GM/DL (14.0-18.0); Immature Granulocytes % 2.6 %; Lymphocytes # 2.1 10*3/uL (1.4-4.0); Lymphocytes % 13.6 % (21.2-54.2); Mean Corpuscular HGB Conc 33.1 GM/DL (32-36); Mean Corpuscular Hemoglobin 28 PG (27-34); Mean Corpuscular Volume 85.8 FL (87-102); Mean Platelet Volume 9.6 FL (9.6-12.0); Monocytes # 1.6 10*3/uL (0.11-0.8); Monocytes % 10.2 % (1.7-12.7); Neutrophils # 10.7 10*3/uL (1.4-7.4); Neutrophils % 68.3 % (38.7-73.9); Platelet Count 598 T/CUMM (130-400); Red Blood Count 3.24 MC/CUMM (3.8-5.5); Red Cell Distribution Width 13.2 % (9.3-17.3); White Blood Count 15.6 T/CUMM (4-12)
[2017-07-08 06:19] LABS: Calcium 8.2 MG/DL (8.5-10.1); Magnesium 2.1 MG/DL (1.8-2.4); Osmolality,Calculated 274.5 MOS/KG (273-304); Potassium 4.2 MMOL/L (3.5-5.1)
[2017-07-08] MEDS: PIPERACILLIN/TAZOBACTAM 3,375 MG in SODIUM CHLORIDE 0.9% 100 ML IV SCH ×3 (06:29→22:57)
[2017-07-08] MEDS: APIXABAN 5 MG TABLET PO SCH ×2 (09:55→21:09)
[2017-07-08] MEDS: PANTOPRAZOLE 40 MG TABLET PO SCH (09:55)
[2017-07-08] MEDS: ATORVASTATIN 20 MG TABLET PO SCH (09:55)
[2017-07-08] MEDS: LISINOPRIL 20 MG TABLET PO SCH (09:56)
[2017-07-08] MEDS: HYDROmorphone 2 MG/1 ML VIAL IV PRN ×3 (09:59→21:09)
[2017-07-09] MEDS: KETOROLAC 30 MG/1 ML VIAL IV SCH ×3 (03:22→09:35)
[2017-07-09 05:32] LABS: Basophils # 0.1 10*3/uL (0.0-0.2); Basophils % 0.7 % (0.0-0.8); Eosinophils # 0.7 10*3/uL (0.0-0.87); Eosinophils % 4.1 % (0.00-10.9); Hematocrit 27.8 VOL% (42.0-52.0); Hemoglobin 9.1 GM/DL (14.0-18.0); Immature Granulocytes % 2.8 %; Immature Granulocytes Absolute 0.46 #; Lymphocytes # 2.2 10*3/uL (1.4-4.0); Lymphocytes % 13.3 % (21.2-54.2); Mean Corpuscular HGB Conc 32.7 GM/DL (32-36); Mean Corpuscular Hemoglobin 28 PG (27-34); Mean Corpuscular Volume 86.1 FL (87-102); Mean Platelet Volume 9.3 FL (9.6-12.0); Monocytes # 1.5 10*3/uL (0.11-0.8); Monocytes % 9.2 % (1.7-12.7); Neutrophils # 11.5 10*3/uL (1.4-7.4); Neutrophils % 69.9 % (38.7-73.9); Platelet Count 659 T/CUMM (130-400); Red Blood Count 3.23 MC/CUMM (3.8-5.5); Red Cell Distribution Width 13.2 % (9.3-17.3); White Blood Count 16.5 T/CUMM (4-12)
[2017-07-09] MEDS: APIXABAN 5 MG TABLET PO SCH (09:02)
[2017-07-09] MEDS: PANTOPRAZOLE 40 MG TABLET PO SCH (09:02)
[2017-07-09] MEDS: LISINOPRIL 20 MG TABLET PO SCH (09:02)
[2017-07-09] MEDS: ATORVASTATIN 20 MG TABLET PO SCH (09:02)
[2017-07-09] MEDS: PIPERACILLIN/TAZOBACTAM 3,375 MG in SODIUM CHLORIDE 0.9% 100 ML IV SCH (09:35)
[2017-07-09] MEDS ORDERED: HYDROmorphone 2 MG/1 ML VIAL IV PRN (10:48)
[2017-07-09 16:08] VITALS: BP 134/70
== END 2017-07-09 16:28 | disposition home or self-care (01) | DRG 551 ==
LOC: N.ED 19:02 → N.EDINP 07-05 00:18 → N.3E 07-05 02:19
PROVIDERS: ADMIT Surgery; ATTEND Surgery